=== PATIENT | male | born 1960 | race Caucasian/White ===

== ENCOUNTER 2025-08-19 11:51 | Inpatient (IN) ==
--- NOTE | 2025-08-19 12:52 | Pre Anesthesia Assessment ---
Date of Service August 19, 2025 Pre Sedation Assessment Vital Signs Pulse Resp BP Pulse Ox O2 Del Method 08/19/25 12:11 75 20 144/92 H 95 Room Air Cardiovascular + regular rate Respiratory + respiratory effort normal Pre-Sedation Airway Assessment Smoking Status: Current every day smoker Hx Sleep Apnea: Yes Hx Difficult Intubation: No Short, Thick Neck: Yes Thyromental Distance: > or= 3.5 Finger Breadths Oral Cavity: + WNL Mallampati Class: III ASA: ASA3 NPO Status Date of Last Intake of Fluids: 08/19/25 Last Oral Intake of Fluids Comment: with meds Date of Last Intake of Solid Food: 08/18/25 Time of Last Intake of Solid Foods: 16:00 Procedure Planning Contraindications for Sedation: none Current Medications Reviewed: Yes Notes The planned sedation has been discussed with the patient. Informed Consent was obtained. I have identified the patient, determined the appropriateness of sedation and have assessed the patient immediately prior to the procedure. All medicine(s) and interventions are by my order.
--- NOTE | 2025-08-19 12:53 | History & Physical Bridge Note ---
Date of Service August 19, 2025 History & Physical Bridge Note I have examined the patient, reviewed the History & Physical and in the interval since the performance of the History & Physical I have noted the following changes of clinical significance: no changes noted
[2025-08-19] MEDS: HEPARIN (PORCINE) 1000 UNIT/ML 10 ML (CATH LAB USE ONLY) ONE (14:17)
[2025-08-19] MEDS: MIDAZOLAM HCL 1 MG/ML 2ML VIAL ONE ×2 (14:20→14:24)
[2025-08-19] MEDS: NITROGLYCERIN/D5W 100MCG/ML 20ML SYR ONE (14:21)
[2025-08-19] MEDS: IODIXANOL (VISIPAQUE) 320 MG/ML 100ML IV ONE (14:21)
[2025-08-19] MEDS: niCARdipine 2,000 MCG/20 ML SYR ONE (14:21)
[2025-08-19] MEDS: FUROSEMIDE 40 MG/4 ML VIAL IV ONE (14:24)
[2025-08-19 14:35] LABS: iSTAT Art Bld Gas Base Excess -1.0 mmol/L (-9-1.8)
[2025-08-19 14:35] LABS: iSTAT Art Bld Gas Base Excess 1.0 mmol/L (-9-1.8)
--- NOTE | 2025-08-19 14:36 | Post Anesthesia Assessment ---
Date of Service August 19, 2025 Post Sedation Assessment Vital Signs Pulse Resp BP Pulse Ox O2 Del Method 08/19/25 12:11 75 20 144/92 H 95 Room Air Recovery Score Activity: Moves 4 extremities Respiration: Deep Breath/Cough Circulation: +/-20% PreAnes Value Consciousness: Fully Awake Oxygen Saturation: O2 needed for >90% Discharge Sedation Level of Care: Fast Track Phase II
[2025-08-19] MEDS ORDERED: ONDANSETRON INJ 2 MG/ML 2 ML VIAL IV PRN (17:22)
[2025-08-19] MEDS ORDERED: ACETAMINOPHEN 325 MG TAB PO PRN (17:34)
--- NOTE | 2025-08-19 17:37 | Cardiac Catheterization ---
[facility] Data: Ergonomics Technician Cardiac Status Clinical evaluation leading to the procedure CAD Presenation: Unstable angina Anginal Classification: CCS III Heart Failure: NYHA Class: CCS IV Diagnostic Physicians Name: Guanako Ramirez MD Closure Device Recommendations: Medical Therapy and/or Counseling, CABG and Valve Replacement Cardiac Cath Procedure Full Procedure Date August 19, 2025 Pre-Procedure Diagnosis Pre-Procedure Diagnosis: Valvular Disease, CHF and Cardiomyopathy AUC Score AUC Score: 7 Post-Procedure Diagnosis Post-Procedure Diagnosis: Severe CAD and Elevated Intracardiac Pressures Procedure(s) Performed Procedure(s) Performed: Coronary Angiography, Left Heart Cath, Right Heart Cath and Ultrasound Guided Vascular Access Trim Sawyer Guanako Ramirez MD Terrestrial Ecologist(s) Rivera Estimated Blood Loss Estimated Blood Loss: 20 Medication(s) Medication(s): Fentanyl, Heparin, Lidocaine 1%, Nicardipine, Nitroglycerin and Versed Summary of Findings Indication: Severe aortic stenosis, cardiomyopathy, CHF Access: 6 Fr slender right radial artery, 6 Fr right antecubital vein under ultrasound guidance Catheters: [place], JR4, AL-1, 3 DRC Findings: LM -normal caliber, long vessel, calcified, 10 to 20% proximal stenosis LAD -medium caliber, subtotal earlymid LAD occlusion. Remainder of LAD with MARCO I flow. Medium caliber D1 and D2 both with 70% proximal disease. Circumflex -medium caliber, 98% mid stenosis with MARCO I-II flow in distal vessel RCA -dominant, large caliber, 30-40% earlymid stenosis, distal vessel without significant disease. RPDA and PLB's without significant disease RA 11 RV 50/14 PA 51/27 (35) PAWP 27 LVEDP 32 PaSat 61% AoSat 98% Ar CO/CI 6.0/2.4 Thermo CO/CI 4.7/1.8 Aortic valve peak to peak pullback gradient 44 mmHg Arterial Closure: TR band Summary: 1. Severe multivessel coronary artery disease - Subtotal earlymid LAD occlusion with MARCO I distal flow 70% proximal stenosis in D1 and D2 98% mid circumflex with MACRO I-II flow 2. Left-sided heart failure (LVEDP 32) 3. Elevated right-sided filling pressures 4. Moderate pulmonary hypertension (postcapillary) 5. Preserved cardiac output 6. Aortic stenosis (pullback gradient 44 mmHg) Recommendations: Recommend diuresis and transfer to tertiary center for consideration of surgical AVR and CABG Hemodynamics Rest Ao:: 96/62/78 Final Ao: 107/65/82 LV: 136/32 Recommendations Recommendations: Medical Therapy and/or Counseling, CABG and Valve Replacement Radiation Exposure (mGy) 3291 Contrast (mls) 105 Anesthesia Moderate 0552-9282 Procedural Complication(s) None Disposition Ergonomics Technician Holding/Recovery I attest to the content of the Intraoperative Record and any orders documented therein. Any exceptions are noted below. [facility] Procedure Codes Cardiac Catheterization Procedure 1: Cardiovascular Cath Procedures: 87503 Coronaries & LHC (+/-LV) & RHC Therapeutic Services & Ancillary Procedure 1: Cardiovascular Tx and Anc Procedures: 14581 Ultrasonic Guidance Vascular Access Procedure 2: Cardiovascular Tx and Anc Procedures: 71058 Ultrasonic Guidance Vascular Access Moderate Sedation Procedure 1: Sedation/Anesthesia: 65505 Mod Sedation by the same physician;Init15 Min Child Age 5 & Up Procedure 2: Sedation/Anesthesia: 71544 Mod Sedation by the same physician; Ea [id number] Minutes PG Care Time/CCT Total # of Minutes Spent Total Time Spent with Patient: Total time spent is greater than 50% in coordination of care (as documented) at patient's floor/unit and/or counseling patient:
--- NOTE | 2025-08-19 17:56 | Discharge Summary ---
Date of Service August 19, 2025 Admission HPI Per Admitting Provider Mr. Mosher is a 65 year old male with a history of Aortic Stenosis, Hypertension, Hypercholesterolemia, RBBB, Prediabetes, GERD, Nephrolithiasis, Obesity, Osteoarthritis, and Prostate Cancer who presents today for follow-up of his Severe Aortic Stenosis and his new Cardiomyopathy(Echocardiogram 05/23/25 showed an LVEF of 45% to 50%, global hypokinesis, and severe aortic stenosis). Patient was initially diagnosed with [id number] aortic stenosis back in 2022. He remained asymptomatic thereafter until approximately January of 2025 when he began to note some exertional dyspnea. This was around the time he had his prostate cancer treated and he was getting radiation therapy. As the summer and fall progressed, the patient noted the ongoing exertional dyspnea and decreased exertional tolerance -- both of which have become significantly worse over the past 3-4 weeks. His echocardiogram dated 05/23/2025 showed an LVEF of 45%-50% with borderline global hypokinesis of left ventricle, mild concentric LVH, and severe aortic valve stenosis (NATACHA 0.54 cm2, mean PG 31.8 mmHg, AoV2 max 400.7 cm/sec). Patient continues to experience exertional dyspnea. He has not had any shortness of breath at rest, orthopnea, or PND. He denies any exertional chest pain, heaviness, tightness, pressure, or discomfort. He denies any exertional neck, jaw, back, or arm pain. He has not had any palpitations, near-syncope, or syncope. He denies any post exertional lightheadedness or syncope. He is compliant with his medications and has not had any adverse side effects. PMSHx: 1. Hypertension 2. Hypercholesterolemia 3. Moderate to severe aortic stenosis identified in January 2023 4. RBBB 5. Hyperglycemia 6. GERD 7. Nephrolithiasis 8. Obesity 9. DJD 10. Prostate carcinoma 11. Basal cell carcinoma 12. Ankle surgery Social history: -- Single, lives alone -- Retired [employer] -- Smokes 1/2 pack of cigarettes daily -- No alcohol Family history: -- Mother at 75 from renal carcinoma -- Father at 72 from bladder carcinoma -- Siblings are alive and well Discharge Data Procedures Performed Operation Date: 08/19/25 13:00 Actual Procedures p Cineradiography w/Routine Exam - Guanako Ramirez MD p Cath, Right and Left Heart - Guanako Ramirez MD Hospital Course (1) Cardiomyopathy: Was referred for outpatient left heart catheterization in the setting of progressive dyspnea and prior echo 06/09 showing severe and mildly reduced LV function. Was recently noted to be in new heart failure and started on Bumex. Patient severely dyspneic walking into [employer] holding and shortness of breath at rest while awaiting procedure. Not hypoxic but unable to lie flat requiring wedging during catheterization. Underwent right and left cardiac catheterization via right radial artery and right antecubital vein. Findings: 1. Severe multivessel coronary artery disease - Subtotal earlymid LAD occlusion with MARCO I distal flow 70% proximal stenosis in D1 and D2 98% mid circumflex with MARCO I-II flow 2. Left-sided heart failure (LVEDP 32) 3. Elevated right-sided filling pressures 4. Moderate pulmonary hypertension (postcapillary) 5. Preserved cardiac output 6. Aortic stenosis (pullback gradient 44 mmHg) Post procedure given 1 dose of IV Lasix 40 mg with urine output of 1900. Underwent repeat echocardiogram which showed now dilated LV with severe LV dysfunction EF 15 to 20% with LAD distribution akinesis. Peak aortic valve gradient 3.5. In the setting of progressive heart failure with multivessel CAD and MARCO I flow in LAD/circumflex without collaterals and previously documented severe decision made to admit and transfer to tertiary center for consideration of surgical AVR and CABG. Case discussed with Dr. Hinds with [facility] cardiac surgery who agreed to accept for additional surgical evaluation. Was on carvedilol, Farxiga as an outpatient. MRA/ARNI not initiated in the setting of recent KELLY. Discharge Instructions Home Medications aspirin 81 mg tablet,delayed release 81 mg PO BID 01/12/24 [History Confirmed 08/19/25] spironolactone 25 mg-hydrochlorothiazide 25 mg tablet 2 tab PO DAILY #180 tabs 08/23/24 [Rx Confirmed 08/19/25] acetaminophen 650 mg tablet,extended release (Tylenol Arthritis Pain) 650 mg PO Q8H PRN Pain (Scale Score 1-3) 08/24/24 [History Confirmed 08/19/25] antiarthritic combination no.2 900 mg tablet (glucosamine-chondroitin) 1,800 mg PO DAILY 08/24/24 [History Confirmed 08/19/25] famotidine 20 mg tablet (Pepcid) 20 mg PO HS 08/24/24 [History Confirmed 08/19/25] clonidine HCl 0.1 mg tablet 0.1 mg PO BID #180 tabs 11/22/24 [Rx Confirmed 08/19/25] tamsulosin 0.4 mg capsule 0.4 mg PO DAILY #90 caps 02/17/25 [Rx Confirmed 08/19/25] carvedilol 25 mg tablet 25 mg PO BID #180 tabs 05/17/25 [Rx Confirmed 08/19/25] bumetanide 1 mg tablet 1 mg PO DAILY #30 tabs 08/10/25 [Rx Confirmed 08/19/25] dapagliflozin propanediol 10 mg tablet (Farxiga) 10 mg PO DAILY #90 tabs 08/10/25 [Rx Confirmed 08/19/25] potassium chloride 20 mEq tablet,extended release(part/cryst) (Klor-Con M) 20 meq PO DAILY #30 tabs 08/10/25 [Rx Confirmed 08/19/25] simvastatin 20 mg tablet 20 mg PO DAILY #90 tabs 08/15/25 [Rx Confirmed 08/19/25] Active Medications Acetaminophen (Acetaminophen 325 Mg Tab) 650 mg PO Q8H PRN PRN Reason: Pain (Scale Score 1-3) Stop: 09/18/25 17:33 Aspirin (Aspirin 81 Mg Ectab) 81 mg PO [facility] Stop: 09/19/25 08:59 Last Admin: 08/20/25 08:14 Dose: 81 mg Atorvastatin Calcium (Atorvastatin 40 Mg Tab) 80 mg PO [facility] Stop: 09/19/25 08:59 Carvedil[facility] ([facility] 25 Mg Tab) [facility] [place]: 09/18/25 20:59 Last Admin: 08/20/25 08:14 Dose: 25 mg Famotidine (Famotidine 20 Mg Tab) 20 mg PO [facility] Stop: 09/18/25 20:59 Last Admin: 08/19/25 20:27 Dose: 20 mg Fluticasone Propionate (Fluticasone Propionate Na Spr 16 Gm Btl) 1 sprays NA DAILY PRN PRN Reason: Allergy Symptoms Stop: 09/19/25 08:59 Last Admin: 08/20/25 08:16 Dose: 1 sprays Furosemide (Furosemide 40 Mg/4 Ml Vial) 40 mg IV DAILY [facility] Stop: 09/19/25 08:59 Miscellaneous (Dapagliflozin Propanediol [Farxiga] 10 Mg Tablet- Order Awaiting Action) 1 each N/A QS [facility] Stop: 09/19/25 00:00 Last Admin: 08/20/25 08:15 Dose: Not Given Ondansetron HCl (Ondansetron Inj 2 Mg/Ml 2 Ml Vial) 4 mg IV Q6H PRN PRN Reason: Nausea And Vomiting Stop: 09/18/25 17:21 Spironolactone (Spironolactone 25 Mg Tab) 25 mg PO QAM [facility] Stop: 09/19/25 08:59 Tamsulosin HCl (Tamsulosin Hcl 0.4 Mg Cap) 0.4 mg PO DAILY [facility] Stop: 09/19/25 08:59 Last Admin: 08/20/25 08:16 Dose: Not Given Coding Level of Care Code 79408 INP/OBS DISCH >30 MIN Diagnoses Cardiomyopathy, unspecified type I42.9 Cardiomyopathy type: unspecified
[2025-08-19] MEDS: FAMOTIDINE 20 MG TAB PO SCH (20:27)
[2025-08-19] MEDS: SODIUM CHLORIDE 0.65% NA SOLN 45 ML (OCEAN) ONE (22:28)
--- NOTE | 2025-08-20 00:43 | XCELERA ---
[id number]
[2025-08-20] MEDS: ASPIRIN 81 MG ECTAB PO SCH (08:14)
[2025-08-20 08:15] LABS: Hematocrit (blood only) 39.2 % (42.0-52.0); Hemoglobin 13.0 g/dL (14.0-18.0); Immature Granulocytes # (auto) 0.03 K/uL (0.01-0.20); Immature Granulocytes % (auto) 0.4 %; Mean Corpuscular Hemoglobin 29.7 pg (25.0-34.0); Mean Corpuscular Volume 89.5 fL (80.0-100.0); Platelet Count 190 K/uL (130-400); RDW Standard Deviation 46.5 fL (36.4-46.3); Red Blood Count 4.38 M/uL (4.70-6.10); White Blood Count 7.11 K/ul (4.8-10.8)
[2025-08-20] MEDS: TAMSULOSIN HCL 0.4 MG CAP PO SCH (08:16)
[2025-08-20] MEDS: FLUTICASONE PROPIONATE NA SPR 16 GM BTL PRN (08:16)
[2025-08-20 08:31] LABS: Anion Gap 9.0 (3-11); Blood Urea Nitrogen 14.0 mg/dl (6-23); Calcium 9.2 mg/dl (8.6-10.3); Carbon Dioxide 27.0 mmol/L (21-32); Chloride 98.0 mmol/L (98-107); Creatinine Clr Calc Pharmacy 80.3 ml/min; Glucose 140.0 mg/dl (70-99(Fasting)); Potassium 3.6 mmol/L (3.5-5.1); Sodium 134.0 mmol/L (136-145)
[2025-08-20] MEDS: FUROSEMIDE 40 MG/4 ML VIAL IV SCH (09:09)
[2025-08-20] MEDS: ATORVASTATIN 40 MG TAB PO SCH (09:31)
[2025-08-20] MEDS: SPIRONOLACTONE 25 MG TAB PO SCH (09:31)
== END 2025-08-20 10:12 | disposition short-term general hospital (02) | DRG 287 ==
LOC: CC 11:51 → 2S 16:40